=== PATIENT | male | born 1940 | race Caucasian/White ===

== ENCOUNTER 2017-11-16 14:22 | Emergency (ER) | payer MEDICARE, OTHER ==
[2017-11-16 14:44] VITALS: BP 105/49
--- NOTE | 2017-11-16 14:58 | ED Physician Documentation ---
History of Present Illness - Stated complaint Stated Complaint: GLF/SOA/L KNEE L HAND PX - Chief complaint Chief Complaint: Wound - Additonal information Additional information: hx from pt fairly healthy 77 male no on blood thinners stumbled on uneven concrete and fell on l side hurting L shoulder and ribs and suffering abrasions of L elbow and L knee mo head injury or pain no abd pain no hip pain Review of Systems Constitutional: denies: Fever, Chills Cardiac: reports: Chest pain / pressure (L ribs) Respiratory: denies: Dyspnea GI: denies: Abdominal Pain Skin: reports: Abrasion (s) Musculoskeletal: reports: Joint pain (L shoulder) Endocrine: denies: Easy bruising / bleeding Immunocompromised: denies: Immunocompromised PD PAST MEDICAL HISTORY - Present Medications Home Medications: Ambulatory Orders Medication Instructions Recorded Confirmed Ascorbic Acid [Vitamin C] 500 mg PO DAILY 11/16/17 11/16/17 Cholecalciferol (Vitamin D3) 1,000 unit PO DAILY 11/16/17 11/16/17 [Vitamin D3] Fluocinonide/Emollient Base 15 gm TP DAILY 11/16/17 11/16/17 [Fluocinonide-E 0.05% Cream] Hydrochlorothiazide 12.5 mg PO DAILY 11/16/17 11/16/17 Lidocaine Patch 5% [Lidoderm Patch] 1 each TOP DAILY PRN #10 patch 11/16/17 Metoprolol Succinate 100 mg PO DAILY 11/16/17 11/16/17 Simvastatin 40 mg PO DAILY 11/16/17 11/16/17 - Allergies Allergies/Adverse Reactions: Allergies Allergy/AdvReac Type Severity Reaction Status Date / Time No Known Drug Allergies Allergy Verified 11/16/17 14:29 PD ED PE NORMAL - Vitals Vital signs reviewed: Yes - General General: Alert and oriented X 3 - HEENT HEENT: Atraumatic - Neck Neck: Supple, no meningeal sign - Cardiac Cardiac: RRR - Respiratory Respiratory: No respiratory distress, Clear bilaterally - Abdomen Abdomen: Soft, Non tender - Derm Derm: Other (abrasions to L elbow and knee) - Extremities Extremities: Other (L shoulder TTP but no deformity, full passive ROM though painful, L elbow full ROM s pain, wrist hand NT, hips NT, knee full ROm s pain, MSV intact) - Neuro Neuro: Alert and oriented X 3 Eye Opening: Spontaneous Motor: Obeys Commands Verbal: Oriented GCS Score: 15 Results - Vitals Vitals: Vital Signs - 24 hr 11/16/17 14:26 Temperature 35.9 C L Heart Rate 52 L Respiratory 18 Rate Blood Pressure 105/49 L O2 Saturation 100 Oxygen O2 Source Room air - Rads (name of study) shoulder Radiology: See rad report (no fx) ribs Radiology: See rad report (no fx) PD MEDICAL DECISION MAKING - Sepsis Event Vital Signs: Vital Signs - 24 hr 11/16/17 14:26 Temperature 35.9 C L Heart Rate 52 L Respiratory 18 Rate Blood Pressure 105/49 L O2 Saturation 100 Oxygen O2 Source Room air Departure - Departure Disposition: 01 Home, Self Care Clinical Impression: Abrasion Fall Qualifiers: Encounter type: initial encounter Qualified Code(s): W19.XXXA - Unspecified fall, initial encounter Contusion of rib on left side Qualifiers: Encounter type: initial encounter Qualified Code(s): S20.212A - Contusion of left front wall of thorax, initial encounter Shoulder contusion Qualifiers: Encounter type: initial encounter Laterality: left Qualified Code(s): S40.012A - Contusion of left shoulder, initial encounter Instructions: ED Contusion Soft Tissue, ED Contusion Rib, ED Abrasion Prescriptions: Lidocaine Patch 5% [Lidoderm Patch] 1 each TOP DAILY PRN #10 patch PRN Reason: Pain Comments: Thankfully all the xrays are fine - no broken ribs or shoulder You will be very stiff and sore and bruised for at least a week May take tylenol for the pain and I also applied lidocaine patches that you can apply to your sore ribs - one patch for up to 12 hr a day
--- NOTE | 2017-11-16 15:57 | XRAY Report ---
Procedure Date: 11/16/2017 Accession Number: [id number] / [id number] Procedure: XR - Shoulder 3 View LT CPT Code: FULL RESULT: EXAM: LEFT SHOULDER RADIOGRAPHY EXAM DATE: 11/16/2017 03:32 PM. CLINICAL HISTORY: Fall. COMPARISON: None. TECHNIQUE: 3 views. FINDINGS: Bones: No acute fracture. Joints: Severe glenohumeral joint space narrowing. Prominent osteophyte formation of the humeral head. Soft tissues: Unremarkable. IMPRESSION: No acute osseus abnormality. Severe glenohumeral osteoarthrosis. [facility]
--- NOTE | 2017-11-16 15:58 | XRAY Report ---
Procedure Date: 11/16/2017 Accession Number: [id number] / [id number] Procedure: XR - Ribs w/PA Chest LT CPT Code: FULL RESULT: EXAM: LEFT RIB RADIOGRAPHY EXAM DATE: 11/16/2017 03:32 PM. CLINICAL HISTORY: Fall. COMPARISON: None. TECHNIQUE: 1 view of the chest and 2 views of the ribs. FINDINGS: Bones: No visualized fracture. Lungs: No focal opacities. No pneumothorax. No pleural effusions. Mediastinum: Heart and mediastinal contours are unremarkable. Other: None. IMPRESSION: Negative chest and rib radiography. [facility]
[2017-11-16] MEDS ORDERED: LIDOCAINE PATCH 5% TOP PRN (16:33)
[2017-11-16] MEDS ORDERED: ACETAMINOPHEN 325 MG TABLET PO STA (16:33)
== END 2017-11-16 16:44 | disposition home or self-care (01) ==
LOC: ED 14:22
DX: S20.212A Contusion of left front wall of thorax, initial encounter (principal); S40.012A Contusion of left shoulder, initial encounter; S50.312A Abrasion of left elbow, initial encounter; S80.212A Abrasion, left knee, initial encounter; W01.198A Fall on same level from slipping, tripping and stumbling with subsequent striking against other object, initial encounter
CPT/HCPCS: 71101; 73030; 99283; A9270